=== PATIENT | female | born 1985 ===

== ENCOUNTER 2017-03-23 16:43 | Emergency (ER) | payer MEDICAID, SELFPAY ==
[2017-03-23 16:53] VITALS: BP 126/76; PULSE 58; RESP 18; TEMP 98.3; O2SAT 98
--- NOTE | 2017-03-23 17:12 | C.PDOC ---
History Of Present Illness 31 year old female who presents to the ER 22 weeks with lower abdominal pain. Patient believes she has a UTI; denies fever, chills, nausea, or vomiting. Time Seen by Provider: 03/23/17 16:56 Chief Complaint (Nursing): Abdominal Pain History Per: Patient History/Exam Limitations: no limitations Onset/Duration Of Symptoms: Hrs Current Symptoms Are (Timing): Still Present Location Of Pain/Discomfort: Suprapubic Radiation Of Pain To:: None Quality Of Discomfort: Unable To Describe Associated Symptoms: denies: Fever, Chills, Nausea, Vomiting Exacerbating Factors: None Alleviating Factors: None Recent travel outside of the [place]: No Abnormal Vaginal Bleeding: No Past Medical History Reviewed: Historical Data, Nursing Documentation, Vital Signs Vital Signs: Last Vital Signs Temp 98.3 F 03/23/17 16:52 Pulse 58 L 03/23/17 16:52 Resp 18 03/23/17 16:52 BP 126/76 03/23/17 16:52 Pulse Ox 98 03/23/17 17:18 - Medical History PMH: No Chronic Diseases Surgical History: No Surg Hx Family History: States: Unknown Family Hx Review Of Systems Constitutional: Negative for: Fever, Chills Gastrointestinal: Positive for: Abdominal Pain. Negative for: Nausea, Vomiting Physical Exam - Physical Exam Appears: Non-toxic Skin: Normal Color, Warm, Dry Head: Atraumatic, Normacephalic Oral Mucosa: Moist Chest: Symmetrical, No Tenderness Cardiovascular: Rhythm Regular, No Murmur Respiratory: Normal Breath Sounds, No Rales, No Rhonchi, No Wheezing Gastrointestinal/Abdominal: Soft, Tenderness (Mild suprapubic) Neurological/Psych: Oriented x3, Normal Speech, Normal Cognition ED Course And Treatment O2 Sat by Pulse Oximetry: 98 (Room air) Pulse Ox Interpretation: Normal Progress Note: Urinalysis ordered. Disposition Counseled Patient/Family Regarding: Studies Performed, Diagnosis, Need For Followup, Rx Given - Disposition Disposition: HOME/ ROUTINE Disposition Time: 18:10 Condition: STABLE Instructions: Urinary Tract Infection in (ED) Forms: [facility] (Korean) - POA Present On Arrival: None - Clinical Impression Clinical Impression: UTI (urinary tract infection), - Scribe Statement The provider has reviewed the documentation as recorded by the Scribe Mauricio Taylor All medical record entries made by the Scribe were at my direction and personally dictated by me. I have reviewed the chart and agree that the record accurately reflects my personal performance of the history, physical exam, medical decision making, and the department course for this patient. I have also personally directed, reviewed, and agree with the discharge instructions and disposition.
[2017-03-23 17:42] LABS: RBC URINE 1 /hpf (0-3); URINE BACTERIA RARE (<OCC); URINE BILIRUBIN NEGATIVE (NEGATIVE); URINE BLOOD NEGATIVE (NEGATIVE); URINE COLOR Yellow (YELLOW); URINE GLUCOSE (UA) NORMAL (Normal); URINE KETONE TRACE mg/dL (NEGATIVE); URINE LEUKOCYTE ESTERASE 2+ Leu/uL (Negative); URINE PROTEIN NEGATIVE (NEGATIVE); URINE UROBILINOGEN NORMAL mg/dL (0.2-1.0); WBC URINE 23 /hpf (0-5)
--- NOTE | 2017-03-24 11:36 | OBHP ---
Datetime: 03/23/2017 18:57 IP Adm Impression: , intrauterine IP Chief Complaint Other: pelvic pressure IP Admit Plan: Discharge home Admit Comment, IP Provider: at 20+weeks came with c/o pelvic pressure and cramping while she vo ids, no vb, lof,+fm. obhx 1 x pmh den med pnv all nkda psh den soch den ve closed//-3 a/p at 20+weeks with uti macrobid 100 mg bid x 7 yays po hyration f/u in clinic as scheduled Pelvic Type - PN: Adequate Extremities - PN: Normal Abdomen - PN: Normal Back - PN: Normal Breast - PN: Normal Lungs - PN: Normal Heart - PN: Normal Thyroid - PN: Normal Neurologic - PN: Normal HEENT - PN: Normal General - PN: Normal FHR - Baseline A Provider: 130 Contraction Comments Provider: none Comments, ACOG Physical Exam: gravid,non tender ext no edema,no calf ten Vital Signs Provider: Reviewed; Within Normal Limits NICHD Variability Prov Fetus A: Moderate 6-25bpm Dilatation, Provider: 0 Effacement, Provider: 0 Station, Provider: -4 Genitourinary Exam: Normal DTRs - PN: Normal
--- NOTE | 2017-03-24 11:37 | OBDCSUM ---
Datetime: 03/23/2017 19:00 Discharged to, Provider: Home Follow up at, Provider: as schuled Follow up in weeks, Provider: clinic Discharge Comment, Provider: macrobid 100 mg bid x 7 yays po hyration f/u in clinic as scheduled Discharge Diagnosis Prov Other: 20weks nst
== END 2017-03-23 18:12 | disposition home or self-care (01) ==
LOC: C.EROB 16:43 → C.ER 16:43
DX: O23.42 Unspecified infection of urinary tract in pregnancy, second trimester (principal); Z3A.22 22 weeks gestation of pregnancy

== ENCOUNTER 2017-06-23 | Emergency (ER) | payer MEDICAID, SELFPAY ==
[2017-06-23] MEDS ORDERED: Lactated Ringer's 1,000 ML IV ONE ×2 (00:30→01:11)
[2017-06-23 00:36] VITALS: BMI 33.9
[2017-06-23] MEDS ORDERED: Betamethasone Soluspan 30 mg/5mL Inj Susp IM STA (01:02)
--- NOTE | 2017-06-23 01:42 | OBHP ---
Datetime: 06/23/2017 01:18 IP Adm Impression: , intrauterine ; Ruptured Membranes IP Adm Impression Other: Uterine contractions; previous C/S IP Admit Plan Other: Transfer to [facility] Admit Comment, IP Provider: 32 y.o. , LMP unsure, AMBER 07/25/17 by sono 02/15.17 at 17w 1d C/O LO F, clear at 2330 hours. (+) LBP also at that time, pain scale 6/10. Had intercourse 12 noon 06/22/17 . (+) AFM; denies VB. Care: [facility] - 1) previous section (patient states desires TO LAC); and 2) multiple leiomyomata. P Ob: 2010, C/S, at 36 weeks, male, gestational HTN, [facility]. 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 Denies h/o STIS. (+) H/O leiolmyomata. Denies abnormal Pap PMH: gest HTN, 2010; no subsequent HTN PSH: C/S NKDA Meds: PNV with DHA - QD Soc Hx: denies tobacco illicit drug or EtOH use. Lives with FOB and son; together x 6 years. Works in a [employer] Fam Hx: Mother alive 55 y.o. - breast cancer survivor, first diagnosed 10 years ago. Father alive 57 y.o. no med issues. No other fam h/o cancer P.E.: as above. WD in NAD. Awake, alert, oriented to time, person and place. Pleasant and coopera tive. FOB present Assessment: 32 y.o. P1, 35w 2d, previous C/S, PPROM, uterine contractions. Category 1 tracing. D /W patient transfer to [facility] institution. Patient and FOB expressed anunderstanding and agrees. No questions offered. Case presented to Dr. Lino Pickens, who accepts the patient. [place] is clinica ll stable. Plan: 1) IVFs 2) Heplock 3) Transfer to [facility] Pelvic Type - PN: Adequate Extremities - PN: Normal Abdomen - PN: Normal Back - PN: Normal Breast - PN: Not Done Lungs - PN: Normal Heart - PN: Normal Thyroid - PN: Not Done Neurologic - PN: Normal HEENT - PN: Normal General - PN: Normal Presentation-Admit: Vertex FHR - Baseline A Provider: 135 Membranes, Provider: Ruptured Contraction Comments Provider: 3-5 Comments, ACOG Physical Exam: Abdomen: Gravid. Soft. Non tender. Fundal height 36 cm Perineum: wet vulv Sterile Spec Exam: copious pooiling; clear fluid Nitrazine (+) Extremities: no calf tenderness; no cyanosis or edema Bedside sono: cephalic; posterior placenta; (+) FM; (+) FBM All other systems reviewed and are negative Gestation - Est Wks by US: 35w 2d IP Hx Assessment: The History has been Reviewed and is Current EGA AdmitDate IP: 33.3 Vital Signs Provider: Reviewed IP Chief Complaint: Suspected ruptured membranes NICHD Variability Prov Fetus A: Moderate 6-25bpm NICHD Accel Fetus A IP Provider: 15X15 NICHD Decel Fetus A IP Provider: None Dilatation, Provider: 2-3 Effacement, Provider: 60 Station, Provider: -2 Genitourinary Exam: Normal DTRs - PN: Not Done
[2017-06-23 06:31] VITALS: BP 127/75; PULSE 65; RESP 18; TEMP 97.6
== END 2017-06-23 02:00 | disposition short-term general hospital (02) ==
LOC: C.EROB
DX: O47.03 False labor before 37 completed weeks of gestation, third trimester (principal); Z3A.35 35 weeks gestation of pregnancy
CPT/HCPCS: 99284; J7120